=== PATIENT | female | born 1990 | race Two or more races ===

== ENCOUNTER 2018-12-24 22:24 | Emergency (ER) | payer OTHER ==
[2018-12-24 22:32] VITALS: BP 138/64; PULSE 78; TEMP 97.8; BMI 33.5
--- NOTE | 2018-12-24 23:27 | PDOC ---
History of Present Illness - General Chief Complaint: Pain, Acute Stated Complaint: 14 WKS /ABD PAIN Time Seen by Provider: 12/24/18 23:27 History Source: Patient Exam Limitations: No Limitations - History of Present Illness Initial Comments: Pt is a 28 yo F, (1 ectopic, 1 miscarriage) presenting at 14 weeks ( confirmed by US), with PMH of asthma (well-controlled), who is presenting with LLQ abdominal cramping that radiates to her back since yesterday afternoon. Pt also complains of mild dysuria while initiating her urine stream. Pt denies any vaginal bleeding or unusual/foul-smelling vaginal discharge. Pt had bleeding at 8 and 10 weeks, but had US after which confirmed IUP. Pt denies any fevers/ chills, headache, vision changes, syncope, chest pain, palpitations, SOB, nausea /vomiting, urinary urgency/frequency/hematuria, diarrhea/constipation, or leg swelling. Social: Pt denies any cigarette, alcohol, or drug use. Pt denies any recent travel or sick contacts. Surgical: no relevant history. Family: no relevant history. 12/25/18 00:55 Past History - Travel Traveled outside of the country in the last 30 days: No Close contact w/someone who was outside of country & ill: No - Past Medical History Allergies/Adverse Reactions: Allergies Allergy/AdvReac Type Severity Reaction Status Date / Time No Known Allergies Allergy Verified 12/24/18 23:36 Home Medications: Ambulatory Orders NK [No Known Home Medication] 12/24/18 COPD: No CHF: No - Suicide/Smoking/Psychosocial Hx Smoking History: Never smoked Have you smoked in the past 12 months: No Information on smoking cessation initiated: No Hx Alcohol Use: No Drug/Substance Use Hx: No Review of Systems - Review of Systems Able to Perform ROS?: Yes Is the patient limited [place] proficient: No Constitutional: Yes: Weight Stable. No: Chills, Diaphoresis, Fever, Loss of Appetite, Malaise, Weakness HEENTM: No: Recent change in vision, Double Vision, Nose Pain, Nose Congestion, Throat Pain, Throat Swelling Respiratory: No: Cough, Shortness of Breath Cardiac (ROS): No: Chest Pain, Palpitations, Chest Tightness ABD/GI: Yes: See HPI, Abdominal cramping. No: Blood Streaked Bowels, Constipated, Diarrhea, Nausea, Poor Appetite, Poor Fluid Intake, Rectal Bleeding , Vomiting : Yes: Burning, Dysuria. No: Discharge, Frequency, Flank Pain, Hematuria, Incontinence, Pain, Urgency Musculoskeletal: No: Back Pain, Joint Pain, Muscle Pain, Muscle Weakness Integumentary: No: Rash Neurological: No: Headache, Weakness, Dizziness Psychiatric: No: Sleep Pattern Change, Change in Appetite Endocrine: No: Increased Urine, Change in Weight Hematologic/Lymphatic: No: Anemia, Blood Clots, Easy Bleeding, Easy Bruising *Physical Exam - Vital Signs Last Vital Signs Temp Pulse Resp BP Pulse Ox 97.8 F 78 16 138/64 100 12/24/18 22:25 12/24/18 22:25 12/24/18 22:25 12/24/18 22:25 12/24/18 22:25 - Physical Exam Comments: Vitals stable, pt afebrile. Pt in NAD, normal body habitus. PE showed pt alert and oriented. reporting process consultant generally intact, muscular strength and sensation intact. Eyes PERRLA, EOMI. Oropharynx without erythema or exudates, no LAD b/l. No nasal congestion, hearing intact. Clear heart sounds, S1/S2, no JVD, b/l pedal edema, or heart murmur. Clear lung sounds, no respiratory distress, wheezes, crackles, or accessory muscle use. No abdominal or CVA tenderness to palpation, no rebound, no guarding. Abdomen soft, non-distended, and with normoactive bowel sounds; fundal height appropriate for gestational age. Skin without jaundice or rash. 12/25/18 00:58 Moderate Sedation - Procedure Monitoring Vital Signs: Procedure Monitoring Vital Signs Temperature 97.8 F 12/24/18 22:25 Pulse Rate 78 12/24/18 22:25 Respiratory Rate 16 12/24/18 22:25 Blood Pressure 138/64 12/24/18 22:25 O2 Sat by Pulse Oximetry (%) 100 12/24/18 22:25 ED Treatment Course - LABORATORY CBC & Chemistry Diagram: 12/25/18 00:05 12/25/18 00:05 Medical Decision Making - Medical Decision Making Pt was seen at bedside, also will be seen by attending Dr. Rankin. Pt is (1 ectopic, 1 miscarriage) presenting at 14 weeks (confirmed by US) who is presenting with LLQ abdominal cramping that radiates to her back since yesterday afternoon. Pt also complains of mild dysuria while initiating her urine stream. Pt denies any vaginal bleeding or unusual/foul-smelling vaginal discharge. Pt had bleeding at 8 and 10 weeks, but had US after which confirmed IUP. Pt denies any fevers/chills, headache, vision changes, syncope, chest pain , palpitations, SOB, nausea/vomiting, urinary urgency/frequency/hematuria, diarrhea/constipation, or leg swelling. Vitals stable, pt afebrile. Pt in NAD, normal body habitus. PE showed pt alert and oriented. reporting process consultant generally intact, muscular strength and sensation intact. Eyes PERRLA, EOMI. Oropharynx without erythema or exudates, no LAD b/l. No nasal congestion, hearing intact. Clear heart sounds, S1/S2, no JVD, b/l pedal edema, or heart murmur. Clear lung sounds, no respiratory distress, wheezes, crackles, or accessory muscle use. No abdominal or CVA tenderness to palpation, no rebound, no guarding. Abdomen soft, non-distended, and with normoactive bowel sounds; fundal height appropriate for gestational age. Skin without jaundice or rash. Considering UTI vs pyelonephritis vs threatened vs ectopic vs ovarian cyst/cyst rupture vs constipation vs diverticulitis/colitis Ordered work-up including CBC, CMP, UA, urine culture, type & screen, and transvaginal US. No interventions provided at this time. Will continue to reassess pt and monitor for symptomatic improvement. 12/25/18 00:16 Labs sent ~40 minutes ago, have not been processed by laboratory. Lab called. 12/25/18 00:52 EXAM: OB Ultrasound >/=14 wks single fetus Single live intrauterine Gestational age 14 weeks 1 day heart rate 157 bpm Ovaries not seen No adnexal masses 12/25/18 01:24 UA negative for infection. 12/25/18 01:32 CBC WNL. 12/25/18 01:35 Pending CMP. Signed out to Dr. Bloom. 12/25/18 02:24 *DC/Admit/Observation/Transfer Diagnosis at time of Disposition: Abdominal cramping affecting - Discharge Dispostion Disposition: HOME Condition at time of disposition: Good Decision to Admit order: No - Referrals Referrals: Rudnicki,Sancho E, MD [Staff Physician] - [facility] [place] [facility] [place] [Provider Group] - Patient Instructions Printed Discharge Instructions: DI for Abdominal Pain -- Early Additional Instructions: You were seen in the ER today for lower abdominal pain during . Your imaging and labs today were normal. Please follow-up with your primary care doctor and OB-LADLE CLEANER within 1-2 days to discuss your visit and make sure your symptoms have improved. Please return to the ER if you have any worsening pain, vaginal bleeding with passage of clots, development of fevers or chills, loss of consciousness, inability to tolerate food or fluids, or any other concerns. Your ultrasound showed a in the uterus at 14 weeks, 1 day. The fetus had good heart rate in the 150s. - Post Discharge Activity
--- NOTE | 2018-12-25 00:22 | PDOC ---
Attending Attestation - HPI HPI: 12/25/18 01:06 The patient is a 28 year old female, A2, 14 weeks , with a PMH of asthma who presents to the ER with left lower quadrant cramping since yesterday afternoon. She reports a history of ectopic and recent miscarriage in August. Patient denies any dysuria, vaginal discharge or vaginal bleeding. Patient denies any fevers, chills, N/V/C/D, cp, sob, hematuria, frequency, urgency. Allergies: NKDA Social: Denies toxic habits. Surgeries: Denies. - Physicial Exam PE: 12/25/18 01:04 ADULT PHYSICAL EXAM Constitutional: Awake, alert, oriented. No acute distress. Cardiovascular: Regular rate. Regular rhythm. S1, S2 regular. Distal pulses are 2+ and symmetric. Pulmonary/Chest: No evidence of respiratory distress. Clear to auscultation bilaterally No wheezing, rales or rhonchi. Abdominal: Soft and non-distended. There is no tenderness. No rebound, guarding or rigidity. No organomegaly. No palpable masses. Good bowel sounds. Musculoskeletal: No edema. No cyanosis. No clubbing. Full range of motion in all extremities. Nocalf tenderness. Radial/pedal pulses are intact and 2+ bilaterally Skin: Skin is warm and dry. No petechiae. No purpura. Neurological: Alert and oriented to person, place, and time. Cranial nerves II -XII are grossly intact. Normal speech. Strength is grossly symmetric. No sensory deficits. Psychiatric: Good eye contact. Normal interaction, affect and behavior. <Erin Fontaine - Last Filed: 12/25/18 01:09> - Resident Resident Name: Serene Jones - ED Attending Attestation I have performed the following: I have examined & evaluated the patient, The case was reviewed & discussed with the resident, I agree w/resident's findings & plan, Exceptions are as noted - Medical Decision Making 12/25/18 00:21 I, Dr. Radha Rankin, DO, attest that this document has been prepared under my direction and personally reviewed by me in its entirety. I further attest, that it accurately reflects all work, treatment, procedures and medical decision -making performed by me. 12/25/18 01:00 a/p: 28yo female at 14 weeks gestation with pelvic cramping -no vag bleeding -hx of ectopic preg and recent miscarriage in [facility] -taking vitamins -urinary freq, no dysuria -no discharge -will send labs, ob ultrasound, ua -pt is nontoxic in appearance -suspect uti -will monitor and reassess 12/25/18 01:02 pt states she recently moved from [place] and needs a referral to a WHEEL SETTER in [place] 12/25/18 01:46 pt 14wks 1 day on ultrasound, fhr 156 12/25/18 01:46 ua negative <Radha Rankin - Last Filed: 12/25/18 01:46>
[2018-12-25 01:01] LABS: BASO % 0.5 % (0-2.0); EOS % 7.6 % (0-4.5); HEMATOCRIT 33.7 % (32.4-45.2); HEMOGLOBIN 11.7 GM/dL (10.7-15.3); LYMPH % 27.5 % (8-40); MCH 32.6 pg (25.7-33.7); MCHC 34.9 g/dl (32.0-36.0); MEAN CELL VOLUME 93.5 fl (80-96); MEAN PLT VOLUME 10.2 fl (7.5-11.1); MONO % 5.5 % (3.8-10.2); NEUT % 58.9 % (42.8-82.8); PLATELET COUNT 171 K/MM3 (134-434); RDW 14.9 % (11.6-15.6)
[2018-12-25 01:11] LABS: URINE APPEARANCE CLEAR; URINE BILIRUBIN NEGATIVE (<2.0 mg/dL); URINE COLOR STRAW; URINE GLUCOSE (UA) NEGATIVE (NEGATIVE); URINE KETONE NEGATIVE (NEGATIVE); URINE LEUK ESTERASE NEGATIVE (NEGATIVE); URINE NITRITE NEGATIVE (NEGATIVE); URINE PROTEIN NEGATIVE (NEGATIVE); URINE UROBILINOGEN NEGATIVE mg/dL (0.2-1.0)
[2018-12-25 02:47] LABS: ALK PHOS 65 U/L (45-117); ANION GAP 6 MMOL/L (8-16); BILIRUBIN,TOTAL 0.2 mg/dL (0.2-1); BLOOD UREA NITROGEN 7 mg/dL (7-18); CALCIUM 8.3 mg/dL (8.5-10.1); CHLORIDE 108 mmol/L (98-107); CO2 23 mmol/L (21-32); CREATININE 0.4 mg/dL (0.55-1.3); GLUCOSE,RANDOM 79 mg/dL (74-106); POTASSIUM 3.9 mmol/L (3.5-5.1); SGOT/AST 27 U/L (15-37); SGPT/ALT 49 U/L (13-61); SODIUM 137 mmol/L (136-145); TOT PROT 6.5 g/dl (6.4-8.2)
--- NOTE | 2018-12-25 03:49 | PDOC ---
*Physical Exam - Vital Signs Last Vital Signs Temp Pulse Resp BP Pulse Ox 97.8 F 78 16 138/64 100 12/24/18 22:25 12/24/18 22:25 12/24/18 22:25 12/24/18 22:25 12/24/18 22:25 ED Treatment Course - LABORATORY CBC & Chemistry Diagram: 12/25/18 00:05 12/25/18 00:05 - ADDITIONAL ORDERS Additional order review: Laboratory Results 12/25/18 12/25/18 12/25/18 00:05 00:05 00:05 Sodium 137 Potassium 3.9 Chloride 108 H Carbon Dioxide 23 Anion Gap 6 L BUN 7 Creatinine 0.4 L Creat Clearance w eGFR > 60 Random Glucose 79 Calcium 8.3 L Total Bilirubin 0.2 AST 27 ALT 49 Alkaline Phosphatase 65 Total Protein 6.5 Albumin 3.0 L Beta HCG, Quant 90919.2 Urine Color Straw Urine Appearance Clear Urine pH 7.0 Ur Specific Darby 1.010 Urine Protein Negative Urine Glucose (UA) Negative Urine Ketones Negative Urine Blood Negative Urine Nitrite Negative Urine Bilirubin Negative Urine Urobilinogen Negative Ur Leukocyte Esterase Negative Blood Type A POSITIVE Antibody Screen Negative 12/25/18 00:05 RBC 3.60 MCV 93.5 MCHC 34.9 RDW 14.9 MPV 10.2 Neutrophils % 58.9 Lymphocytes % 27.5 Monocytes % 5.5 Eosinophils % 7.6 H Basophils % 0.5 Medical Decision Making - Medical Decision Making 12/25/18 03:50 Leola Cabrera is an otherwise healthy 28yo woman at 14wks gestation by US who presented to the ED overnight with abdominal cramping and slight dysuria since yesterday. ED course so far is notable for US confirming 14w1d viable IUP, HR 157. - labs are now completed. No concerning abnormalities - Cramping has improved. Ms Cabrera was sleeping comfortably - Discussed results. She would like to transfer her care to an watchmaking teacher at [facility]. D/c instructions and provider information for follow up were provided by Dr Jones. Plan to d/c home, and Ms Cabrera will follow up within the next week. She understands and agrees with this plan. Discussed with Dr Sumner. Traci Bloom PGY1 *DC/Admit/Observation/Transfer Diagnosis at time of Disposition: Abdominal cramping affecting - Discharge Dispostion Disposition: HOME Condition at time of disposition: Good - Referrals Referrals: [facility] [place] [facility] [place] [Provider Group] Sancho Montenegro MD [Staff Physician] - - Patient Instructions Printed Discharge Instructions: DI for -- Discomforts and Remedies, DI for Abdominal Pain -- Early Additional Instructions: You were seen in the ER today for lower abdominal pain during . Your imaging and labs today were normal. Please follow-up with your primary care doctor and OB-[facility] CRANE OPERATOR within 1-2 days to discuss your visit and make sure your symptoms have improved. Please return to the ER if you have any worsening pain, vaginal bleeding with passage of clots, development of fevers or chills, loss of consciousness, inability to tolerate food or fluids, or any other concerns. Your ultrasound showed a in the uterus at 14 weeks, 1 day. The fetus had good heart rate in the 150s. - Post Discharge Activity
== END 2018-12-25 03:56 | disposition home or self-care (01) ==
LOC: JER 22:24
DX: O26.892 Other specified pregnancy related conditions, second trimester (principal); R10.30 Lower abdominal pain, unspecified; Z3A.14 14 weeks gestation of pregnancy
CPT/HCPCS: 36415; 76801-TC; 80053; 81003; 84702; 85025; 86850; 86900; 86901; 87086; 99282-25